=== PATIENT | female | born 1945 | race Caucasian/White ===

== ENCOUNTER → 2017-03-04 | Outpatient (CLI) | payer MEDICARE, BC ==
[~2017-03-04] MED LIST: ALEVE220 M1 PO; ALEVE220 MG PO; APAP650 PO; ASPIRIN EC81 M1; BROVANA15 MCG/2 M INH; COLACE100 MG; COUMADIN 5 MG TA5 M1; DUONEB 2.5-0.5 M3 ML INH; ENOXAPARIN100 MG/11 SUBQ; FLORASTOR250 MG PO; GABADONE CAPSU1 EACH; GLYBURIDE 2.52.5 M1 PO; GLYBURIDE 2.52.5 MG PO; LASIX 20 MG TAB20 MG PO; LEVAQUIN 500 M500 M2 PO; LEXAPRO 10 MG T10 M1 PO; LIPITOR 20 MG T20 M1 PO; METFORMIN HCL500 MG PO; MOBIC7.5 M1; MUCINEX TA600 MG/TA2 PO; NEURONTIN 300300 M1; NICOTINE TRANSD21 M1; NICOTINE TRANSD21 M1 TRANSDERM; NORCO 10-325 T1 EAC1 PO; NORCO 5-325 TA1 EAC1 PO; OXYBUTYNIN 5 MG5 M1; OXYCODONE HCL5 M1; OXYGEN; PLAVIX 75 MG TA75 M1 PO; PREDNISONE 10 M10 MG PO; PREDNISONE 20 M20 MG PO; PROTONIX40 M1 PO; SPIRIVA INH
[2017-03-04 12:36] LABS: CREATININE 1.2 mg/dL (0.6-1.3); POTASSIUM 4.3 mmol/L (3.5-5.1)
== END ==
LOC: M.CT 11:43 → M.LAB 12:00 → M.CT 13:00
PROVIDERS: Internal Medicine
DX: R06.00 Dyspnea, unspecified (principal); G45.8 Other transient cerebral ischemic attacks and related syndromes; J15.6 Pneumonia due to other Gram-negative bacteria; J96.21 Acute and chronic respiratory failure with hypoxia; J44.1 Chronic obstructive pulmonary disease with (acute) exacerbation

== ENCOUNTER → 2017-03-16 | Outpatient (CLI) | payer MEDICARE, BC | LOC: M.RAD 14:50 → M.NUC 16:00 | DX: J44.9 Chronic obstructive pulmonary disease, unspecified (principal); I51.7 Cardiomegaly; J98.11 Atelectasis; R91.8 Other nonspecific abnormal finding of lung field; G45.9 Transient cerebral ischemic attack, unspecified ==

== ENCOUNTER 2021-02-17 11:44 | Inpatient (IN) | payer MEDICARE, BC ==
[~2021-02-17] VITALS: Ht 165.1 cm; Wt 129.3 kg
[2021-02-17 11:44] VITALS: BP 142/50
[2021-02-17 12:18] LABS: ABSOLUTE BASOPHILS 0.1 thou/uL (0.0-0.2); ABSOLUTE EOSINOPHILS 0.2 thou/uL (0.0-0.7); ABSOLUTE LYMPHOCYTES 1.4 thou/uL (0.8-5.3); ABSOLUTE MONOCYTES 0.6 thou/uL (0.0-1.2); ABSOLUTE NEUTROPHILS 6.7 thou/uL (1.6-8.1); BASOPHILS 0.7 %; EOSINOPHILS 1.7 %; HEMATOCRIT 34.9 % (37.0-47.0); HEMOGLOBIN 10.9 gm/dL (12.0-15.0); LYMPHOCYTES 15.9 %; MCH 25.9 pg (26.0-34.0); MCHC 31.2 g/dL (28.0-37.0); MONOCYTES 6.4 %; NUCLEATED RBCS 0 /100WBC; PLATELET COUNT* 298 thou/uL (150-400); POLYS 75.3 %; RBC 4.21 mil/uL (4.20-5.00); RDW-CV 17.3 % (10.5-14.5); WBC 8.9 thou/uL (4.0-11.0)
[2021-02-17 13:23] LABS: CALCIUM 8.9 mg/dL (8.5-10.1); CREATININE 1.5 mg/dL (0.6-1.3); POTASSIUM 4.5 mmol/L (3.5-5.1)
[2021-02-17 13:34] LABS: ALBUMIN 3.1 g/dL (3.4-5.0); MAGNESIUM 2.4 mg/dL (1.8-2.4); TOTAL BILIRUBIN 0.4 mg/dL (<0.1-1.0); TOTAL PROTEIN 6.6 g/dL (6.4-8.2)
--- NOTE | 2021-02-17 15:43 | EKG ---
[place] [address] ELECTROCARDIOGRAM REPORT Name: EDITH WEEMS Room: [place] [address] ADM IN M.R.#: [id number] Admission: 02/17/21 Attend Phys: Karen Greene Discharge: Date of : 43 Date of Service: 02/17/21 1203 Report #: [id number] THIS REPORT FOR: //name// [facility] Test Date: 2021-02-17 Test Time: 12:03:11 Pat Name: EDITH WEEMS Department: Room: [facility] Gender: F [employer] Integration Developer: ROBLES : 1945 Requested By: Jesse Zavala Order Number: [id number] MD: Arsalan Bynum Measurements Intervals Taylor Rate: 100 P: 85 NH: 168 QRS: 50 QRSD: 85 T: -64 QT: 416 QTc: 537 Interpretive Statements Sinus tachycardia with rare PAC Ventricular bigeminy Low voltage, extremity and precordial leads Possible anteroseptal infarct, old Compared to ECG 01/05/2016 14:05:25 Ventricular premature complex(es) now present Sinus rate has increased Myocardial infarct finding still present Electronically Signed On 02-17-2021 15:43:30 MEMORANDUM STATEMENT CLERK by Arsalan Bynum [email or web address] <ELECTRONICALLY SIGNED> By: Arsalan Bynum MD, [facility] 02/17/21 1543 1203 1203 Arsalan Bynum MD, [facility] /EPI
[2021-02-17] MEDS ORDERED: VITAMIN D350 MC3 PO (16:11)
[2021-02-17] MEDS ORDERED: LISINOPRIL2.5 MG PO (16:11)
[2021-02-17] MEDS ORDERED: VITAMIN B-121000 MC2 SUBLING (16:12)
[2021-02-17] MEDS ORDERED: BIOTIN1000 MCG PO (16:13)
[2021-02-17] MEDS ORDERED: TRELEGY ELLIPT1 EACH INH (16:15)
[2021-02-17] MEDS ORDERED: VYZULTA5 ML OPHTHALMIC (16:15)
[2021-02-17 18:18] VITALS: BP 148/67
[2021-02-17 21:52] VITALS: BP 100/58
[2021-02-17 21:55] VITALS: BP 137/60
[2021-02-18] MEDS ORDERED: DORZOLAMIDE 2%10 ML (00:03)
[2021-02-18 01:21] VITALS: BP 117/48
[2021-02-18 03:48] VITALS: BP 121/88
[2021-02-18 05:10] LABS: CALCIUM 8.7 mg/dL (8.5-10.1); CREATININE 1.3 mg/dL (0.6-1.3)
--- NOTE | 2021-02-18 06:10 | NUR ---
ASSUMED CARE OF PT 02/17/21 AT APPROX 2200. PT A&OX4, VSS ON 3L O2 NC, IV SALINE LOCKED, UP WITH ASSIST TO BSC. SR WITH OPAL ON TELE MONITOR. NO CO PAIN. TRILOGY NOC. PT SLEEPING WELL, WILL CONTINUE TO MONITOR.
[2021-02-18 08:28] VITALS: BP 135/74
--- NOTE | 2021-02-18 11:47 | 2DMMODE ---
[place] [address] 2 D/M-MODE ECHOCARDIOGRAM Name: EDITH WEEMS Room: [address] ADM IN .R.#: [id number] Admission: 02/17/21 Attend Phys: Karen Greene Discharge: Date of : 43 Date of Service: 02/18/21 1146 Report #: [id number] THIS REPORT FOR: cc: Sandi Dumont Christina L DO Holkins,Arsalan Garcia MD [facility] ~ APPROVED REPORT Study performed: 02/18/2021 10:50:49 EXAM: Comprehensive 2D, Doppler, and color-flow Echocardiogram Patient Location: In-Patient Room #: [facility] BSA: 2.30 HR: 84 bpm BP: 135/74 mmHg Other Information Study Quality: Good Indications Dyspnea 2D Dimensions IVSd: 10.32 (7-11mm) LVOT Diam: 21.74 (18-24mm) LVDd: 51.40 mm PWd: 10.82 (7-11mm) Ascending Ao: 33.07 (22-36mm) LVDs: 36.71 (25-40mm) Aortic Root: 30.40 mm Volumes Left Atrial Volume (Systole) LA ESV Index: 26.80 mL/m2 Aortic Valve AoV Peak Galdino.: 1.65 m/s AO Peak Gr.: 10.89 mmHg LVOT Max P.08 mmHg AO Mean Gr.: 5.72 mmHg LVOT Mean P.43 mmHg LVOT Max V: 1.13 m/s AO V2 VTI: 34.40 cm LVOT Mean V: 0.71 m/s ANTONELLA (VTI): 2.62 cm2 LVOT V1 VTI: 24.25 [place] [address] 2 D/M-MODE ECHOCARDIOGRAM Name: FAUSTINAEDITH CorleyANGELITA Room: [address] IN M.R.#: [id number] Admission: 02/17/21 Attend Phys: Karen Greene Discharge: Date of : 43 Date of Service: 02/18/21 1146 Report #: [id number] E/A Ratio: 0.91 MV Decel. Time: 180.26 ms MV E Max Galdino.: 0.82 m/s MV PHT: 52.28 ms MVA (PHT): 4.21 cm2 TDI E/Lateral E': 9.11 E/Medial E': 10.25 Medial E' Galdino.: 0.08 m/s Lateral E' Galdino.: 0.09 m/s Pulmonary Valve PV Peak Galdino.: 0.98 m/s PV Peak Gr.: 3.87 mmHg Tricuspid Valve RAP Estimate: 5.00 mmHg TR Peak Gr.: 19.36 mmHg RVSP: 24.36 mmHg PA Pressure: 24.36 mmHg Left Ventricle The left ventricle is normal size. There is normal LV segmental wall motion. There is normal left ventricular wall thickness. Left ventricular systolic function is normal. The left ventricular ejection fraction is within the normal range. LVEF is 55-60%. Grade I - abnormal relaxation pattern. Right Ventricle The right ventricle is normal size. The right ventricular systolic function is normal. Atria The left atrium size is normal. The right atrium size is normal. Aortic Valve Mild aortic valve sclerosis. No aortic regurgitation is present. There is no aortic valvular stenosis. Mitral Valve The mitral valve is normal in structure. Mild mitral regurgitation. No evidence of mitral valve stenosis. Tricuspid Valve The tricuspid valve is normal in structure. [place] [address] 2 D/M-MODE ECHOCARDIOGRAM Name: EDITH WEEMS Room: [address] IN [facility]#: [id number] Admission: 02/17/21 Attend Phys: Karen Greene Discharge: Date of : 43 Date of Service: 02/18/21 1146 Report #: [id number] Pulmonic Valve The pulmonary valve is normal in structure. There is no pulmonic valvular regurgitation. Great Vessels The aortic root is normal in size. IVC is normal in size and collapses >50% with inspiration. Pericardium There is no pericardial effusion. <Conclusion> The left ventricle is normal size. There is normal left ventricular wall thickness. Left ventricular systolic function is normal. The left ventricular ejection fraction is within the normal range. LVEF is 55-60%. Grade I - abnormal relaxation pattern. The right ventricle is normal size. The left atrium size is normal. Mild aortic valve sclerosis. No aortic regurgitation is present. There is no aortic valvular stenosis. The mitral valve is normal in structure. Mild mitral regurgitation. The tricuspid valve is normal in structure. Mild tricuspid regurgitation. IVC is normal in size and collapses >50% with inspiration. There is no pericardial effusion. There is normal LV segmental wall motion. <ELECTRONICALLY SIGNED> By: Arsalan Bynum MD, FACC 02/18/21 1146 1146 1146 Arsalan Bynum MD, FACC /INF
[2021-02-18 12:27] VITALS: BP 106/36
--- NOTE | 2021-02-18 15:16 | NUR ---
CM ASSESSMENT ASSESSMENT COMPLETED WITH PT. PT ALERT AND ORIENTED. PT LIVES WITH IN HOME WITH STEPS, BUT PT DOES NOT USES STEPS. PT USES A WALKER. PT HAS A TRILOGY WHICH SUPPLIES 2L O2. PT IND WITH ADLS. PT WENT TO AN UNKNOWN SKILLED FACILITY FOUR YEARS AGO. PT REPORTS HAVING HH YEARS AGO WITH AN UNKNOWN AGENCY. CM TO FOLLOW FOR DC PLANNING.
[2021-02-18 16:28] VITALS: BP 123/61
--- NOTE | 2021-02-18 18:27 | NUR ---
PATIENT IS ALERT AND ORIENTED X 4, VERY PLEASANT AND COOPERATIVE. PATIENT IS UP AD BENJAMIN IN ROOM WITH BEDSIDE COMMODE. IS ON IV LASIX TODAY AND IS URNIATING FREQUENTY WITHOUT DIFFICULTY. PATIENT HAD A DENISE SCAN PREFORMED TODAY AND WAS ABLE TO TOLERATE THE PROCEDURE WELL. WAS AT BEDSIDE PART OF THE DAY. PATIENT HAS VOICED NO COMPLAINTS OF PAIN AND STATES SHE FEELS LIKE THE SWELLING IS GETTING BETTER, BLE STILL EDEMATOUS. WILL CONTINUE WITH POC.
[2021-02-18 20:00] VITALS: BP 112/57
[2021-02-19] VITALS: BP 120/67
[2021-02-19 04:00] VITALS: BP 130/69
[2021-02-19 04:48] LABS: CALCIUM 8.9 mg/dL (8.5-10.1); CREATININE 1.6 mg/dL (0.6-1.3); POTASSIUM 4.5 mmol/L (3.5-5.1)
--- NOTE | 2021-02-19 05:15 | NUR ---
ASSUMED CARE AT 1930. PATIENT RESTED IN BED. SLEPT MUCH OF NIGHT. VERY SOA WIHT EXERTION. ON TELE, SINUS ARRHYTHMIA, BIGEMINY PER MARU LORENZO. SALINE LOCK TO MEHDI INTACT. BLE EDEMA 2+ BUT STATES IT'S IMPROVING. UP WITH SBA, VOIDS PER BSC. USED TRIOLOGY THROUGH THE NIGHT. NO C/O PAIN. HOURLY ROUNDS CONTINUE. BED ALARM ON. CALL LITE IN REACH.
[2021-02-19 08:05] VITALS: BP 108/51
--- NOTE | 2021-02-19 10:27 | NUR ---
PLAN OF CARE: PLAN REMAINS FOR THE PT TO RETURN HOME AT D/C WITH POSSIBLE HH AND HOME O2. PT REMAINS ON 3L O2 AT THIS TIME, AND PT WILL NEED R.T. REST AND EX OX TO DETERMINE HOME O2 NEEDS PRIOR TO D/C. CM WILL REMAIN AVAILABLE TO ASSIST AND FOLLOW NEEDED.
[2021-02-19 12:00] VITALS: BP 115/51
[2021-02-19 16:00] VITALS: BP 111/42
--- NOTE | 2021-02-19 17:23 | NUR ---
PT UP WITH SBA. PT WAS ON 3L 02 PER RASHAD AVILA IN CARDIO LAB MOVE 02 DOWN TILL PT IS OFF 02. PT IS OFF 02 AND IS AT 93% RM. PT HAS BI LAT 2+ EDEMA IN FEET. PT HAS NO COMPLAINT OF PAIN. IV IN RT AC DC'D , PT WAITING FOR DC IN RM WATCHING TV WITH CALL LIGHT IN REACH.
[2021-02-19] MEDS ORDERED: BUMETANIDE 1 MG1 M1 PO (18:13)
[2021-02-19] MEDS ORDERED: PREDNISONE 10 M10 MG PO (18:16)
[2021-02-19] MEDS ORDERED: ZPAK PO (18:16)
[2021-02-19 18:27] VITALS: BP 111/42
== END 2021-02-19 19:40 | disposition home or self-care (01) | DRG 291 ==
LOC: M.ERS 11:44 → M.TBA-ER 15:16 → M.2W 15:16
PROVIDERS: Emergency Medicine Emergency Medical Services; Registered Nurse; ADMIT Internal Medicine; ATTEND Internal Medicine
DX: I11.0 Hypertensive heart disease with heart failure (principal); J96.01 Acute respiratory failure with hypoxia; I50.33 Acute on chronic diastolic (congestive) heart failure; N17.9 Acute kidney failure, unspecified; Z68.42 Body mass index [BMI] 45.0-49.9, adult; J44.1 Chronic obstructive pulmonary disease with (acute) exacerbation; E66.01 Morbid (severe) obesity due to excess calories; Z86.73 Personal history of transient ischemic attack (TIA), and cerebral infarction without residual deficits; Z20.822 Contact with and (suspected) exposure to COVID-19; E11.9 Type 2 diabetes mellitus without complications; E78.5 Hyperlipidemia, unspecified

== ENCOUNTER → 2021-03-02 | Outpatient (CLI) | payer MEDICARE, BC ==
[~2021-03-02] MED LIST changes: +BIOTIN1000 MCG PO; +BUMETANIDE 1 MG1 M1 PO; +DORZOLAMIDE 2%10 ML; +LISINOPRIL2.5 MG PO; +TRELEGY ELLIPT1 EACH INH; +VITAMIN B-121000 MC2 SUBLING; +VITAMIN D350 MC3 PO; +VYZULTA5 ML OPHTHALMIC; +ZPAK PO
[2021-03-02 15:03] LABS: ALBUMIN 3.4 g/dL (3.4-5.0); CALCIUM 9.1 mg/dL (8.5-10.1); CREATININE 1.7 mg/dL (0.6-1.3); POTASSIUM 4.7 mmol/L (3.5-5.1); TOTAL BILIRUBIN 0.5 mg/dL (<0.1-1.0); TOTAL PROTEIN 6.3 g/dL (6.4-8.2)
== END ==
LOC: M.LAB 13:44
PROVIDERS: ATTEND Registered Nurse
DX: I50.32 Chronic diastolic (congestive) heart failure (principal)